=== PATIENT | female | born 1985 | race Caucasian/White ===

== ENCOUNTER 2017-10-09 11:50 | Emergency (ER) | payer MEDICAID ==
[2017-10-09] MEDS ORDERED: HYDROcodone/Acetaminophen 10/325 mg Tablet ONE (12:05)
--- NOTE | 2017-10-09 13:29 | RAD ---
LUMBAR SPINE 3 VIEWS: Date: 10/09/17 PROVIDED CLINICAL HISTORY: Back pain status post injury. FINDINGS: Five non-rib bearing lumbar-type vertebral bodies are present. Lumbar alignment appears normal. Verte bral body heights appear preserved. Pedicles appear intact. IUD overlies the pelvis. IMPRESSION: No evidence for an acute osseous abnormality. POS: [facility]
== END 2017-10-09 12:48 | disposition home or self-care (01) ==
LOC: ERS 11:50
DX: S39.012A Strain of muscle, fascia and tendon of lower back, initial encounter (principal); V89.2XXA Person injured in unspecified motor-vehicle accident, traffic, initial encounter; W22.11XA Striking against or struck by driver side automobile airbag, initial encounter
CPT/HCPCS: 72100

== ENCOUNTER 2019-10-26 07:33 | Emergency (ER) | payer MEDICAID | END 2019-10-26 07:50 | disposition home or self-care (01) | LOC: ERS 07:33 | DX: H60.93 Unspecified otitis externa, bilateral (principal) | CPT/HCPCS: 99282 ==

== ENCOUNTER 2021-08-20 10:43 | Emergency (ER) | END 2021-08-20 13:00 | disposition left against medical advice (07) | LOC: ERS 10:43 | DX: Z53.21 Procedure and treatment not carried out due to patient leaving prior to being seen by health care provider (principal) ==

== ENCOUNTER 2021-08-20 19:03 | Emergency (ER) | payer SELFPAY ==
[2021-08-20 20:03] LABS: Hemoglobin 13.9 g/dL (12.0-16.0); Mean Corpuscular Volume 88.3 fL (78.0-98.0); Platelet Count 180 thou/uL (130-400); RBC Distribution Width 10.9 % (11.5-14.5); Red Blood Cell (RBC) Count 4.65 mill/uL (4.20-5.40); White Blood Cell (WBC) Count 4.4 thou/uL (4.8-10.8)
[2021-08-20 20:16] LABS: ALT (SGPT) 25 U/L (8-55); AST (SGOT) 25 U/L (5-34); Albumin 4.1 g/dL (3.5-5.0); Alkaline Phosphatase 49 U/L (40-110); Anion Gap 17 mmol/L (10-20); BUN (Urea Nitrogen) 9 mg/dL (7.0-18.7); Bilirubin, Total 0.4 mg/dL (0.2-1.2); Calc. Creatinine Clearance 0 mL/min (70-130); Calcium 8.5 mg/dL (7.8-10.44); Carbon Dioxide 22 mmol/L (22-29); Chloride 101 mmol/L (98-107); Globulin 3.5 g/dL (2.4-3.5); Glucose 131 mg/dL (70-105); Potassium 3.5 mmol/L (3.5-5.1); Protein, Total 7.6 g/dL (6.0-8.3); Sodium 136 mmol/L (136-145)
[2021-08-20 20:22] LABS: Band 15 % (5-11); Lymphocytes 19 % (21-51); MDiff Complete? YES; Monocytes 12 % (0-10); Neutrophil 54 % (42-75); Platelet Morphology Comment Appears Adequate; Polychromasia SLIGHT = 2-3 cells (100X) (0-2/hpf)
[2021-08-20 20:29] LABS: BHCG - Serum Negative (NEGATIVE); Pregs Control Background? CLEAR/WHITE (CLR/WHITE); Pregs Control Bar Appear? YES (CONTROL BAR)
[2021-08-20 21:19] LABS: Bilirubin Negative (Negative); Blood, Urine Negative (Negative); Clarity Clear (Clear); Glucose, Urine (Dipstick) Normal (Negative); Ketone, Urine Negative (Negative); Leukocyte Negative Leu/uL (Negative); Nitrite Negative (Negative); Protein, Urine (Dipstick) Negative (Neg-Trace); Specific Gravity, Urine 1.008 (1.002-1.036); Urobilinogen Normal mg/dL (Less than 2); pH, Urine 6.5 (5.0-9.0)
== END 2021-08-20 21:38 | disposition home or self-care (01) ==
LOC: ERS 19:03
DX: R55 Syncope and collapse (principal); H92.01 Otalgia, right ear
CPT/HCPCS: 36415; 70450; 71045; 72125; 80053; 81003; 83735; 84484; 84703; 85025; 93005